=== PATIENT | female | born 1945 | race Caucasian/White ===

== ENCOUNTER 2018-05-17 10:02 | Outpatient (CLI) | payer MEDICARE, BC ==
--- NOTE | 2018-05-17 15:35 | RAD ---
EXAM: ESOPHAGRAM: 05/17/18 HISTORY: Patient with possible stricture, Merissa fundoplication. A suspension of barium sulfate was given orally. Spot and overhead images obtained. The patient has unremarkable proximal mid and distal esophagus. The gastroesophageal junction is seen . In the region of the fundus, there is an area of asymmetric density. This is concerning for a possibl e mass or slipped Merissa fundoplication which is compressing the inner lumen of the gastric fundus. The rest of the stomach is grossly unremarkable in the visualized portions. IMPRESSION: Possible slipped Merissa fundoplication versus circumferential mass. POS: [facility]
== END 2018-05-17 10:03 | disposition home or self-care (01) ==
LOC: RAD 10:02
PROVIDERS: ATTEND Family Medicine
DX: K21.9 Gastro-esophageal reflux disease without esophagitis (principal)
CPT/HCPCS: 74220

== ENCOUNTER 2018-07-01 07:19 | Outpatient (CLI) | payer MEDICARE, BC ==
--- NOTE | 2018-07-01 11:58 | NM ---
FNuclear medicine gastric emptying study INDICATION: History of hiatal hernia repair and cholecystectomy with epigastric abdominal pain and dy sphagia Radiopharmaceutical: 2 mCi of technetium 99m sulfur colloid orally with eggs FINDINGS: At the 30 minute time chon there was 38% emptying. At the 1 hour time chon there was 58% em ptying. At the two-hour time chon there was 97% emptying. At the three-hour time IT was 100% emptying . The T 1/2 is 53 minutes. IMPRESSION: Gastric emptying study as above.
== END 2018-07-01 07:20 | disposition home or self-care (01) ==
LOC: NM 07:19
PROVIDERS: ATTEND Internal Medicine Gastroenterology
DX: R13.19 Other dysphagia (principal); R10.13 Epigastric pain
CPT/HCPCS: 78264; A9541

== ENCOUNTER 2023-04-01 13:28 | Outpatient (CLI) | payer MEDICARE, BC | END 2023-04-01 13:29 | disposition home or self-care (01) | LOC: RAD 13:28 | PROVIDERS: ATTEND Internal Medicine | DX: R06.00 Dyspnea, unspecified (principal) | CPT/HCPCS: 71046 ==

== ENCOUNTER 2023-08-22 07:36 | Inpatient (IN) | payer MEDICARE, BC ==
[2023-08-22] MEDS ORDERED: Dextrose 50% Abboject 50 ML SYRINGE SLOW IVP PRN (10:55)
[2023-08-22] MEDS ORDERED: Dextrose 5% in Water 1,000 ML IV PRN (10:55)
[2023-08-22] MEDS ORDERED: Glucagon 1 MG/ML KIT IM PRN (10:55)
[2023-08-22] MEDS ORDERED: Albuterol 2.5 MG (3 mL) NEB NEB PRN (11:18)
[2023-08-22] MEDS: Pantoprazole 40 MG VIAL IVP SCH ×2 (12:23→20:33)
[2023-08-22 12:28] LABS: Anion Gap 26 mmol/L (10-20); BUN (Urea Nitrogen) 17 mg/dL (9.8-20.1); Calc. Creatinine Clearance 59 mL/min (70-130); Calcium 9.9 mg/dL (7.8-10.44); Carbon Dioxide 13 mmol/L (23-31); Chloride 106 mmol/L (98-107); Estimated GFR 92; Glucose 180 mg/dL (83-110); Potassium 3.8 mmol/L (3.5-5.1); Sodium 141 mmol/L (136-145)
[2023-08-22] MEDS: HumaLOG 300 UNITS/3 ML VIAL SC PRN (12:53)
[2023-08-22] MEDS: Lorazepam 2 MG/ML VIAL SLOW IVP PRN (14:56)
[2023-08-22] MEDS: NS 0.9% w/ 20 MEQ KCL 1,000 ML/1,000 ML BAG IV SCH (14:56)
[2023-08-22] MEDS: Sodium Chloride 0.9% 500 ML IV SCH (14:56)
[2023-08-23] MEDS: Levothyroxine Sodium 100 MCG TAB PO SCH (05:02)
[2023-08-23] MEDS: cefTRIAXone\\ROCEPHIN 2 GM in Sodium Chloride 0.9% 100 ML IVPB SCH (05:02)
[2023-08-23 06:11] LABS: #Basophils 0.05 10x3/uL (0.0-0.2); %Basophils 0.4 % (0.0-1.0); %Eosinophils 0.4 % (0.0-10.0); %Lymphocytes 23.4 % (21.0-51.0); %Monocytes 8.6 % (0.0-10.0); %Neutrophils 66.9 % (42.0-75.0); Hematocrit 38.5 % (36.0-47.0); Hemoglobin 12.1 g/dL (12.0-16.0); Mean Corpuscular HGB CONC 31.4 g/dL (32.0-36.0); Mean Corpuscular Hemoglobin 32.4 pg (27.0-31.0); Mean Corpuscular Volume 102.9 fL (78.0-98.0); Mean Platelet Volume 10.7 fL (7.4-10.4); Platelet Count 277 10x3/uL (130-400); RBC Distribution Width 13.8 % (11.5-14.5); Red Blood Cell (RBC) Count 3.74 mill/uL (4.20-5.40)
[2023-08-23 06:24] LABS: Lactic Acid 0.6 mmol/L (0.5-2.2)
[2023-08-23 06:28] LABS: Anion Gap 14 mmol/L (10-20); BUN (Urea Nitrogen) 22 mg/dL (9.8-20.1); Calc. Creatinine Clearance 67 mL/min (70-130); Calcium 8.7 mg/dL (7.8-10.44); Carbon Dioxide 16 mmol/L (23-31); Chloride 114 mmol/L (98-107); Estimated GFR 95; Glucose 135 mg/dL (83-110); Potassium 3.7 mmol/L (3.5-5.1); Sodium 140 mmol/L (136-145)
[2023-08-23] MEDS ORDERED: PROPOFOL 20 ML ONE (09:33)
[2023-08-23] MEDS ORDERED: Ondansetron PF 4 MG/2 ML Vial ONE (10:22)
[2023-08-23] MEDS: Enoxaparin 40 MG (0.4 mL) SYRINGE SC SCH (10:30)
[2023-08-23] MEDS ORDERED: Promethazine HCl 25 MG/ML VIAL ONE (10:35)
[2023-08-23] MEDS: Ondansetron PF 4 MG/2 ML Vial IVP PRN (12:39)
[2023-08-23] MEDS: Escitalopram Oxalate 10 mg Tablet PO SCH ×2 (13:24→16:36)
[2023-08-23] MEDS ORDERED: Loperamide HCl 2 MG CAP PO PRN (15:42)
[2023-08-23] MEDS: Lorazepam 2 MG/ML VIAL SLOW IVP SCH (15:44)
[2023-08-23] MEDS: Promethazine HCl 25 MG in Sodium Chloride 0.9% 50 ML IVPB PRN (16:00)
[2023-08-24] MEDS: Promethazine HCl 25 MG SUPP PR PRN (10:15)
[2023-08-24] MEDS: Lorazepam 0.5 MG TAB SL SCH (10:51)
[2023-08-24 15:08] VITALS: BMI 20.1
[2023-08-24] MEDS: HumaLOG 300 UNITS/3 ML VIAL SC PRN (20:55)
[2023-08-25 08:53] LABS: #Basophils 0.04 10x3/uL (0.0-0.2); #Eosinphils Less than 0.03 10x3/uL (0.0-0.7); %Basophils 0.3 % (0.0-1.0); %Lymphocytes 12.7 % (21.0-51.0); %Monocytes 7.3 % (0.0-10.0); %Neutrophils 78.9 % (42.0-75.0); Hematocrit 44.4 % (36.0-47.0); Hemoglobin 14.2 g/dL (12.0-16.0); Mean Corpuscular Hemoglobin 32.8 pg (27.0-31.0); Mean Corpuscular Volume 102.5 fL (78.0-98.0); Mean Platelet Volume 10.5 fL (7.4-10.4); Platelet Count 379 10x3/uL (130-400); Red Blood Cell (RBC) Count 4.33 mill/uL (4.20-5.40)
[2023-08-25] MEDS ORDERED: Iopamidol-370 76% 500 ML MDV (1 ML CHARGE) ONE (10:38)
[2023-08-25] MEDS: Promethazine HCl 12.5 MG SUPP PR PRN (10:52)
[2023-08-25 11:41] LABS: Anion Gap 22 mmol/L (10-20); BUN (Urea Nitrogen) 14 mg/dL (9.8-20.1); Calc. Creatinine Clearance 60 mL/min (70-130); Calcium 9.2 mg/dL (7.8-10.44); Carbon Dioxide 8 mmol/L (23-31); Chloride 111 mmol/L (98-107); Estimated GFR 92; Glucose 158 mg/dL (83-110); Potassium 2.9 mmol/L (3.5-5.1); Sodium 138 mmol/L (136-145)
[2023-08-25] MEDS: Sodium Bicarbonate 150 MEQ in Dextrose 5% in Water 1,000 ML IV SCH ×3 (13:02→21:13)
[2023-08-25 13:13] LABS: Lactic Acid 1.1 mmol/L (0.5-2.2)
[2023-08-25 13:18] LABS: ALT (SGPT) 21 U/L (8-55); AST (SGOT) 17 U/L (5-34); Albumin 3.6 g/dL (3.4-4.8); Alkaline Phosphatase 86 U/L (40-110); Bilirubin, Direct 0.2 mg/dL (0.1-0.3); Bilirubin, Total 0.6 mg/dL (0.2-1.2); Protein, Total 6.5 g/dL (5.8-8.1)
[2023-08-25] MEDS: Potassium Chloride 20 MEQ in Premix 1 BAG IVPB SCH ×2 (13:20→20:41)
[2023-08-25] MEDS ORDERED: Sodium Bicarbonate 150 MEQ in Dextrose 5% in Water 1,000 ML IV SCH (14:21)
[2023-08-25 14:24] LABS: Base Excess (BEa) -15.6 mEq/L (-2.0 to +3.0); Calcium, Ionized (arterial) 1.33 mmol/L (1.12-1.30); Carboxyhemoglobin (COHb) 0.9 gm% (0.0-3.0); Hematocrit-ABG 45 % (36.0-47.0); Hemoglobin (Hb) 15.4 g/dL (12.0-16.0); O2 Tension (PaO2), arterial 103.7 mmHg (> 70.0); pH, Arterial 7.271 (7.35-7.45)
[2023-08-25 14:26] LABS: CO2 Tension 19.4 mmHg (35.0-45.0)
[2023-08-25 14:27] LABS: Actual Bicarbonate (HCO3a) 8.7 mEq/L (22-28); Puncture Site Right Radial
[2023-08-25 16:24] LABS: Magnesium 1.8 mg/dL (1.6-2.6)
[2023-08-25 16:35] LABS: Anion Gap 23 mmol/L (10-20); BUN (Urea Nitrogen) 11 mg/dL (9.8-20.1); Calc. Creatinine Clearance 54 mL/min (70-130); Calcium 9.6 mg/dL (7.8-10.44); Carbon Dioxide 8 mmol/L (23-31); Chloride 110 mmol/L (98-107); Estimated GFR 90; Glucose 185 mg/dL (83-110); Phosphorus 1.3 mg/dL (2.3-4.7); Potassium 3.5 mmol/L (3.5-5.1); Sodium 137 mmol/L (136-145)
[2023-08-25] MEDS: Fioricet 325/50/40 mg Tablet PO SCH (16:55)
[2023-08-25] MEDS: PHOS-NAK 1 PKT PACK PO SCH (18:35)
[2023-08-25 19:00] LABS: Anion Gap 20 mmol/L (10-20); BUN (Urea Nitrogen) 11 mg/dL (9.8-20.1); Calc. Creatinine Clearance 52 mL/min (70-130); Calcium 9.6 mg/dL (7.8-10.44); Carbon Dioxide 8 mmol/L (23-31); Chloride 111 mmol/L (98-107); Estimated GFR 87; Glucose 181 mg/dL (83-110); Potassium 3.7 mmol/L (3.5-5.1); Sodium 135 mmol/L (136-145)
[2023-08-25 20:36] LABS: Hemoglobin A1c 8.4 % (4.0-6.0)
[2023-08-25 20:43] LABS: Anion Gap 17 mmol/L (10-20); BUN (Urea Nitrogen) 11 mg/dL (9.8-20.1); Calc. Creatinine Clearance 58 mL/min (70-130); Calcium 9.4 mg/dL (7.8-10.44); Carbon Dioxide 10 mmol/L (23-31); Chloride 108 mmol/L (98-107); Estimated GFR 91; Glucose 150 mg/dL (83-110); Potassium 3.5 mmol/L (3.5-5.1); Sodium 131 mmol/L (136-145)
[2023-08-25 20:43] LABS: Phosphorus 1.1 mg/dL (2.3-4.7)
[2023-08-25] MEDS ORDERED: Electrolyte Replacement Protocol 1 EACH FS SCH (21:00)
[2023-08-25] MEDS ORDERED: Magnesium Sulfate In Water 4 GM in Premix 1 BAG IVPB SCH (21:15)
[2023-08-25] MEDS: Magnesium 2 GM/50 ML(in water) 2 GM in Premix 1 BAG IVPB SCH (23:44)
[2023-08-25] MEDS: Potassium Phosphate 22 MMOL in Sodium Chloride 0.9% 250 ML 250 ML IVPB SCH (23:45)
[2023-08-26 00:33] LABS: Anion Gap 17 mmol/L (10-20); BUN (Urea Nitrogen) 11 mg/dL (9.8-20.1); Calc. Creatinine Clearance 56 mL/min (70-130); Calcium 9.2 mg/dL (7.8-10.44); Carbon Dioxide 13 mmol/L (23-31); Chloride 107 mmol/L (98-107); Estimated GFR 91; Glucose 161 mg/dL (83-110); Potassium 3.2 mmol/L (3.5-5.1); Sodium 134 mmol/L (136-145)
[2023-08-26 04:50] LABS: Actual Bicarbonate (HCO3v) 16.3 mEq/L (22-28); Base Excess -6.8 mEq/L (-2.0 to +3.0); Calcium, Ionized (venous) 1.17 mmol/L (1.16-1.32); Chloride (VBG) 102 mmol/L (98-106); Hematocrit-VBG 42 % (36.0-47.0); Hemoglobin (Hb) 14.2 g/dL (11.7-16.1); Potassium (VBG) 3.47 mmol/L (3.70-5.30); Sodium 129 mmol/L (133-146); pH (venous) 7.398 (7.32-7.43)
[2023-08-26 04:59] VITALS: BMI 21.2
[2023-08-26 05:04] LABS: #Basophils 0.03 10x3/uL (0.0-0.2); %Basophils 0.3 % (0.0-1.0); %Eosinophils 0.7 % (0.0-10.0); %Monocytes 10.8 % (0.0-10.0); %Neutrophils 48.7 % (42.0-75.0); Hematocrit 39.6 % (36.0-47.0); Hemoglobin 13.6 g/dL (12.0-16.0); Mean Corpuscular HGB CONC 34.3 g/dL (32.0-36.0); Mean Corpuscular Hemoglobin 31.9 pg (27.0-31.0); Mean Platelet Volume 10.6 fL (7.4-10.4); Platelet Count 324 10x3/uL (130-400); RBC Distribution Width 13.2 % (11.5-14.5); Red Blood Cell (RBC) Count 4.26 mill/uL (4.20-5.40)
[2023-08-26 05:18] LABS: Anion Gap 16 mmol/L (10-20); BUN (Urea Nitrogen) 10 mg/dL (9.8-20.1); Calc. Creatinine Clearance 66 mL/min (70-130); Calcium 8.5 mg/dL (7.8-10.44); Carbon Dioxide 16 mmol/L (23-31); Chloride 107 mmol/L (98-107); Estimated GFR 93; Glucose 185 mg/dL (83-110); Magnesium 2.2 mg/dL (1.6-2.6); Potassium 3.3 mmol/L (3.5-5.1); Sodium 136 mmol/L (136-145)
[2023-08-26 05:25] LABS: Phosphorus 2.6 mg/dL (2.3-4.7)
[2023-08-26] MEDS: Potassium Chloride 20 MEQ TAB PO SCH ×2 (09:08→16:57)
[2023-08-26 10:28] LABS: Anion Gap 15 mmol/L (10-20); BUN (Urea Nitrogen) 11 mg/dL (9.8-20.1); Calc. Creatinine Clearance 58 mL/min (70-130); Calcium 8.4 mg/dL (7.8-10.44); Carbon Dioxide 20 mmol/L (23-31); Chloride 102 mmol/L (98-107); Estimated GFR 90; Glucose 397 mg/dL (83-110); Potassium 2.8 mmol/L (3.5-5.1); Sodium 134 mmol/L (136-145)
[2023-08-26] MEDS ORDERED: Insulin Regular 300 UNITS/3 ML VIAL IVP SCH (11:00)
[2023-08-26] MEDS: Insulin Regular, Human 100 UNIT/ML 10 ML VIAL IVP SCH (11:37)
[2023-08-26] MEDS: Potassium Chloride 20 MEQ in Premix 1 BAG IVPB SCH (11:47)
[2023-08-26 13:35] LABS: Anion Gap 14 mmol/L (10-20); BUN (Urea Nitrogen) 10 mg/dL (9.8-20.1); Calc. Creatinine Clearance 70 mL/min (70-130); Calcium 8.4 mg/dL (7.8-10.44); Carbon Dioxide 20 mmol/L (23-31); Chloride 104 mmol/L (98-107); Estimated GFR 94; Glucose 230 mg/dL (83-110); Potassium 3.2 mmol/L (3.5-5.1); Sodium 135 mmol/L (136-145)
[2023-08-26] MEDS ORDERED: Glucagon 1 MG/ML KIT IM PRN (15:52)
[2023-08-26] MEDS ORDERED: Dextrose 5% in Water 1,000 ML IV PRN (15:52)
[2023-08-26] MEDS ORDERED: Dextrose 50% Abboject 50 ML SYRINGE SLOW IVP PRN (15:52)
[2023-08-26] MEDS: Acetaminophen 325 MG TAB PO PRN (16:57)
[2023-08-27 07:29] LABS: Magnesium 1.8 mg/dL (1.6-2.6)
[2023-08-27] MEDS: Magnesium 2 GM/50 ML(in water) 2 GM in Premix 1 BAG IVPB SCH (08:34)
[2023-08-27 10:28] LABS: Anion Gap 19 mmol/L (10-20); BUN (Urea Nitrogen) 11 mg/dL (9.8-20.1); Calc. Creatinine Clearance 82 mL/min (70-130); Calcium 8.7 mg/dL (7.8-10.44); Carbon Dioxide 17 mmol/L (23-31); Chloride 102 mmol/L (98-107); Estimated GFR 98; Glucose 179 mg/dL (83-110); Potassium 3.8 mmol/L (3.5-5.1); Sodium 134 mmol/L (136-145)
[2023-08-27] MEDS: Insulin Glargine 30 UNITS/0.3 ML VIAL SC SCH (11:03)
[2023-08-27] MEDS: Sodium Bicarbonate Tab 325 MG TAB PO SCH ×2 (13:37→16:51)
[2023-08-27] MEDS ORDERED: Aztreonam 1 GM in Sodium Chloride 0.9% 100 ML IVPB SCH (21:00)
[2023-08-28] MEDS: HumaLOG 300 UNITS/3 ML VIAL SC PRN (05:43)
[2023-08-28 06:21] LABS: Anion Gap 14 mmol/L (10-20); BUN (Urea Nitrogen) 16 mg/dL (9.8-20.1); Calc. Creatinine Clearance 82 mL/min (70-130); Calcium 8.8 mg/dL (7.8-10.44); Carbon Dioxide 21 mmol/L (23-31); Chloride 103 mmol/L (98-107); Estimated GFR 98; Glucose 183 mg/dL (83-110); Potassium 3.4 mmol/L (3.5-5.1); Sodium 135 mmol/L (136-145)
[2023-08-28 08:05] VITALS: BP 101/65; TEMP 98.6
[2023-08-28] MEDS: Potassium Chloride 20 MEQ TAB PO SCH (08:06)
[2023-08-28] MEDS: Insulin Glargine 30 UNITS/0.3 ML VIAL SC SCH (08:07)
== END 2023-08-28 11:58 | disposition home or self-care (01) | DRG 392 ==
LOC: T4-B 10:03 → OBSVTOIN 10:55 → IMCU/EMU 08-25 23:11 → T4-A 08-27 01:31
PROVIDERS: ADMIT Student in an Organized Health Care Education/Training Program; ATTEND Internal Medicine
PROC: 0DJ08ZZ Inspection of Upper Intestinal Tract, Via Natural or Artificial Opening Endoscopic (ICD-10-PCS; principal; 2023-08-23)
PROC: 4A033R1 Measurement of Arterial Saturation, Peripheral, Percutaneous Approach (ICD-10-PCS; 2023-08-25)
DX: R11.2 Nausea with vomiting, unspecified (principal); E87.20 Acidosis, unspecified; N39.0 Urinary tract infection, site not specified; T38.3X5A Adverse effect of insulin and oral hypoglycemic [antidiabetic] drugs, initial encounter; K21.00 Gastro-esophageal reflux disease with esophagitis, without bleeding; E87.6 Hypokalemia; E03.9 Hypothyroidism, unspecified; F41.9 Anxiety disorder, unspecified; E11.22 Type 2 diabetes mellitus with diabetic chronic kidney disease; N18.1 Chronic kidney disease, stage 1; I12.9 Hypertensive chronic kidney disease with stage 1 through stage 4 chronic kidney disease, or unspecified chronic kidney disease; E83.39 Other disorders of phosphorus metabolism; R82.71 Bacteriuria; Z88.5 Allergy status to narcotic agent; Z88.8 Allergy status to other drugs, medicaments and biological substances; Z79.899 Other long term (current) drug therapy; Z90.49 Acquired absence of other specified parts of digestive tract; Z98.890 Other specified postprocedural states; Z90.710 Acquired absence of both cervix and uterus
CPT/HCPCS: 36415; 36416; 74174; 80048; 80076; 82010; 82805; 83036; 83605; 83735; 83970; 84100; 85025; 87324; 87449; C9113; J0696; J1650; J1815; J2060; J2405; J2550; J2704; J3475; J3480; J3490; J7030; J7050; J7070; Q9967